=== PATIENT | male | born 1945 | race Hispanic/Latino ===

== ENCOUNTER 2022-10-14 06:00 | Day surgery (SDC) | payer OTHER ==
[2022-10-13 12:04] LABS: BASOPHILS % (AUTO) 0.4 % (0.0-5.0); EOSINOPHILS % (AUTO) 2.5 % (0.0-8.0); HEMATOCRIT 39.4 % (42-54); LYMPHOCYTES % (AUTO) 18.7 % (21.0-51.0); MEAN CORPUSCULAR HGB CONC 32.5 g/dL (32.0-36.0); MEAN CORPUSCULAR VOLUME 92.3 fL (79-99); MONOCYTES % (AUTO) 8.3 % (3.0-13.0); NEUTROPHILS % (AUTO) 69.7 % (40.0-77.0); PLATELET COUNT (AUTO) 209 K/uL (130-400); RED BLOOD CELL COUNT(AUTO) 4.27 MIL/uL (4.50-6.20); RED CELL DISTRIBUTION WIDTH 13.5 % (11.0-15.5); WHITE BLOOD COUNT (AUTO) 9.5 K/uL (4.8-10.8)
[2022-10-13 12:14] VITALS: BP 137/62
[2022-10-13 12:14] LABS: INR 1.01 (0.85-1.15)
[2022-10-13 12:14] LABS: APPEARANCE,URINE CLEAR (CLEAR); BILIRUBIN,URINE NEGATIVE (NEGATIVE); COLOR,URINE YELLOW (YELLOW); GLUCOSE, URINE (UA) 200 mg/dL (NEGATIVE); KETONES,URINE NEGATIVE (NEGATIVE); LEUKOCYTE ESTERASE ,URINE NEGATIVE Leu/uL (NEGATIVE); NITRATE,URINE NEGATIVE (NEGATIVE); OCCULT BLOOD,URINE NEGATIVE (NEGATIVE); PH,URINE 5.5 (5.0-8.0); PROTEIN,URINE NEGATIVE (NEGATIVE)
[2022-10-13 12:15] LABS: PARTIAL THROMBOPLASTIN TIME 29.1 SEC (26.3-35.5)
[2022-10-13 12:27] LABS: MUCUS,URINE RARE LPF (None Seen); RBC,URINE 0-1 /HPF (0-1); SQUAMOUS EPITHELIAL CELL,UR RARE /HPF (0-2); WBC,URINE 0-1 /HPF (0-1)
[2022-10-13 12:36] LABS: B-TYPE NATRIURETIC PEPTIDE 53 pg/mL (0-100)
[2022-10-13 12:51] LABS: CREATININE 1.8 mg/dL (0.5-1.5); POTASSIUM 4.7 mmol/L (3.5-5.1)
[2022-10-14] VITALS (10 sets, daily range): BP systolic 109–140; BP diastolic 53–67
[~2022-10-14] VITALS: Ht 185.4 cm; Wt 119.3 kg
[~2022-10-14 06:00] MED LIST: 0.9% NACL 500ML IV.SOLN 500 ML IV SCH; ALFU10TA9 PO; AMLO-257 PO; CETI10TA57 PO; CLOP75TA32 PO; DOCU100C33 PO; EMPA25TA PO; FAMO20TA8 PO; FOLI1TAB82 PO; GLIP2.5T2 PO; ISOS30TA92 PO; LOSA50TA64 PO; MECL-160 PO; METF-444 PO; METO25TA6 PO; PANT40TA54 PO; SIMV-43 PO
[2022-10-14] MEDS ORDERED: 0.9%NACL 1000ML 1,000 ML IV ONE ×2 (06:15→09:44)
[2022-10-14] MEDS ORDERED: LIDOCAINE HCL 400MG/20ML VIAL ONE (07:09)
[2022-10-14] MEDS ORDERED: HEPARIN 10,000 UNIT/10ML (1,000 UNIT/ML) VIAL ONE (07:10)
[2022-10-14] MEDS ORDERED: IOHEXOL 350 MG/ML 100ML INFUS..BTL IV ONE (07:10)
[2022-10-14] MEDS ORDERED: NITROGLYCERIN 50MG VIAL ONE (07:10)
[2022-10-14] MEDS ORDERED: VERAPAMIL HCL 2.5 MG/ML VIAL ONE (07:27)
[2022-10-14] MEDS ORDERED: MIDAZOLAM HCL 1 MG/ML 2ML VIAL ONE (07:46)
[2022-10-14] MEDS ORDERED: FENTANYL CITRATE PF 50 MCG/1 ML 2ML VIAL ONE (07:46)
[2022-10-14] MEDS ORDERED: DEXTROSE 50%-WATER 50 ML DISP.SYRIN IV PRN (09:00)
[2022-10-14] MEDS ORDERED: GLUCAGON 1MG KIT 1 MG ML IM PRN (09:00)
[2022-10-14] MEDS ORDERED: 0.9%NACL 1000ML 1,000 ML IV SCH ×2 (09:00→10:00)
[2022-10-14 10:26] LABS: CREATININE 1.7 mg/dL (0.5-1.5); POTASSIUM 4.4 mmol/L (3.5-5.1)
[2022-10-14] MEDS ORDERED: INSULIN HUMULIN R 100 UNIT/ML 3ML SQ SCH (11:30)
== END 2022-10-14 12:15 | disposition home or self-care (01) ==
LOC: DAH 06:00
PROVIDERS: ATTEND Internal Medicine Interventional Cardiology
DX: R07.2 Precordial pain (principal); R00.8 Other abnormalities of heart beat; R42 Dizziness and giddiness; R06.00 Dyspnea, unspecified; I11.0 Hypertensive heart disease with heart failure; I50.30 Unspecified diastolic (congestive) heart failure; E11.59 Type 2 diabetes mellitus with other circulatory complications; D64.9 Anemia, unspecified; K21.9 Gastro-esophageal reflux disease without esophagitis; E66.01 Morbid (severe) obesity due to excess calories; E11.51 Type 2 diabetes mellitus with diabetic peripheral angiopathy without gangrene; E11.43 Type 2 diabetes mellitus with diabetic autonomic (poly)neuropathy; E78.2 Mixed hyperlipidemia; Z86.73 Personal history of transient ischemic attack (TIA), and cerebral infarction without residual deficits; Z68.34 Body mass index [BMI] 34.0-34.9, adult; Z79.84 Long term (current) use of oral hypoglycemic drugs
CPT/HCPCS: 80048 ×2; 83880; 85025; 85610; 85730; 81001; 36415 ×2; 71045; 93005; 93458; 82948 ×2; C1769; C1894; A4649; J3010; J3490 ×3; J7030 ×2; J1644 ×2; J2250; Q9967; A4215; A4222; A4221; A4663; A4216; A4606; Q9965; A4223 ×3; 99156; 99157

== ENCOUNTER → 2023-09-18 | Outpatient (CLI) | payer OTHER ==
[~2023-09-18] MED LIST changes: -0.9% NACL 500ML IV.SOLN 500 ML IV SCH; -MECL-160 PO; +MECL-302 PO
== END | disposition home or self-care (01) ==
LOC: RAH 14:06
PROVIDERS: ATTEND Chiropractor
DX: I07.1 Rheumatic tricuspid insufficiency (principal); I25.9 Chronic ischemic heart disease, unspecified
CPT/HCPCS: 93306

== ENCOUNTER 2024-10-27 06:25 | Day surgery (SDC) | payer OTHER ==
[~2024-10-27] VITALS: Ht 185.4 cm; Wt 117.5 kg
[2024-10-27] VITALS (10 sets, daily range): BP systolic 103–152; BP diastolic 52–65; PULSE 58–76; RESP 12–18; TEMP 97–97.5
[~2024-10-27 06:25] MED LIST changes: +ALFU10TA46 PO; -ALFU10TA9 PO; -AMLO-257 PO; -DOCU100C33 PO; -EMPA25TA PO; +FURO20TA4 PO; +GLIP10TA16 PO; -GLIP2.5T2 PO; -ISOS30TA92 PO; +LINZESS PO; -METF-444 PO; +METO-408 PO; -METO25TA6 PO; +OZEMPIC SQ
[2024-10-27] MEDS: 0.9%NACL 1000ML 1,000 ML IV ONE (06:43)
[2024-10-27] MEDS ORDERED: proPOFol 10 MG/ML 20ML VIAL IV ONE ×2 (07:30→07:47)
== END 2024-10-27 09:05 | disposition home or self-care (01) ==
LOC: ENDO 06:25 → DAH 06:25 → ENDO 09:05
PROVIDERS: ATTEND Internal Medicine
DX: R93.3 Abnormal findings on diagnostic imaging of other parts of digestive tract (principal); K29.50 Unspecified chronic gastritis without bleeding; K31.89 Other diseases of stomach and duodenum; K31.7 Polyp of stomach and duodenum; K92.9 Disease of digestive system, unspecified; I10 Essential (primary) hypertension; E11.9 Type 2 diabetes mellitus without complications; J45.909 Unspecified asthma, uncomplicated; E66.9 Obesity, unspecified; D12.6 Benign neoplasm of colon, unspecified; K59.04 Chronic idiopathic constipation; K44.9 Diaphragmatic hernia without obstruction or gangrene; K21.00 Gastro-esophageal reflux disease with esophagitis, without bleeding; K57.30 Diverticulosis of large intestine without perforation or abscess without bleeding; E78.2 Mixed hyperlipidemia; Z86.73 Personal history of transient ischemic attack (TIA), and cerebral infarction without residual deficits; Z96.659 Presence of unspecified artificial knee joint; Z79.899 Other long term (current) drug therapy
CPT/HCPCS: 82948 ×2; 43239; 43251; 43259; J7030 ×2; J2704 ×2; A4620; A4215 ×2; A4223; A4222; A4221; A4663; A4606; J3490